=== PATIENT | male | born 1965 | race Caucasian/White ===

== ENCOUNTER 2021-05-29 12:01 | Emergency (ER) | payer BC ==
[~2021-05-29] VITALS: Ht 188 cm; Wt 142.8 kg
--- NOTE | 2021-05-29 12:37 | PHYS DOC ---
General Adult EDM: Chief Complaint: CHEST PAIN HPI: HPI: Patient is a 55-year-old male being seen in the ER for left-sided chest pain, nonproductive cough, and shortness of breath that started a couple of days ago. Patient rates pain 3 out of 10. It does not radiate. No treatment prior to arrival. Patient reports that his daughter is Covid positive is in the hospital. Patient denies nausea, vomiting, abdominal pain, loss of taste or smell, swelling in his lower extremities, fevers. (NANDINI REYES APRN) Review of Systems: Review of Systems: 14 body systems of the review of systems have been reviewed. See HPI for pertinent positive and negative responses, otherwise all other systems are negative, nonpertinent or noncontributory (NANDINI REYES APRN) Allergies: Allergies: Allergies Coded Allergies Type Severity Reaction Last Updated Verified No Known Drug Allergies 05/29/21 No (NANDINI REYES APRN) Physical Exam: PE: Constitutional: Well developed, well nourished, no acute distress, non-toxic appearance. [] HENT: Normocephalic, atraumatic Eyes: PERRL, conjunctiva normal, no discharge. [] Neck: Normal range of motion, no tenderness, supple, no stridor. [] Cardiovascular:Heart rate regular rhythm, no murmur [] Lungs & Thorax: Bilateral breath sounds clear to auscultation [] Abdomen: Bowel sounds normal, soft, obese, no tenderness, no masses, no pulsatile masses. [] Skin: Warm, dry, no erythema, no rash. [] Back: Normal range of motion Extremities: No tenderness, no cyanosis, no clubbing, ROM intact, no edema. [] Neurologic: Alert and oriented X 3, normal motor function, normal sensory function, no focal deficits noted. [] Psychologic: Affect normal, judgement normal, mood normal. [] (NANIDNI REYES APRN) Current Patient Data: Labs: Laboratory Tests Test 05/29/21 12:20 05/29/21 15:20 White Blood Count 7.2 x10^3/uL Red Blood Count 5.34 x10^6/uL Hemoglobin 16.7 g/dL Hematocrit 47.9 % Mean Corpuscular Volume 90 fL Mean Corpuscular Hemoglobin 31 pg Mean Corpuscular Hemoglobin Concent 35 g/dL Red Cell Distribution Width 13.2 % Platelet Count 115 x10^3/uL Neutrophils (%) (Auto) 67 % Lymphocytes (%) (Auto) 23 % Monocytes (%) (Auto) 8 % Eosinophils (%) (Auto) 1 % Basophils (%) (Auto) 1 % Neutrophils # (Auto) 4.8 x10^3uL Lymphocytes # (Auto) 1.6 x10^3/uL Monocytes # (Auto) 0.6 x10^3/uL Eosinophils # (Auto) 0.1 x10^3/uL Basophils # (Auto) 0.0 x10^3/uL Sodium Level 140 mmol/L Potassium Level 3.9 mmol/L Chloride Level 105 mmol/L Carbon Dioxide Level 26 mmol/L Anion Gap 9 Blood Urea Nitrogen 9 mg/dL Creatinine 1.0 mg/dL Estimated GFR (Cockcroft-Gault) 77.9 BUN/Creatinine Ratio 9 Glucose Level 233 mg/dL Calcium Level 8.8 mg/dL Total Bilirubin 1.1 mg/dL Aspartate Amino Transf (AST/SGOT) 38 U/L Alanine Aminotransferase (ALT/SGPT) 53 U/L Alkaline Phosphatase 73 U/L Troponin I Quantitative < 0.017 ng/mL < 0.017 ng/mL Total Protein 6.8 g/dL Albumin 3.7 g/dL Albumin/Globulin Ratio 1.2 Current Medications Medications (Trade) Dose Ordered Sig/Santosh Route PRN Reason Start Time Stop Time Status Last Admin Dose Admin Aspirin (Aspirin Chewable) 324 mg 1X ONCE PO 05/29/21 12:45 05/29/21 12:46 DC 05/29/21 13:22 Ceftriaxone Sodium 1 gm/ Sodium Chloride 50 ml @ 100 mls/hr 1X ONCE IV 05/29/21 13:30 05/29/21 13:59 DC 05/29/21 13:50 Azithromycin (Zithromax) 500 mg 1X ONCE PO 05/29/21 13:30 05/29/21 13:31 DC 05/29/21 13:49 Iohexol (Omnipaque 350 Mg/ml) 100 ml 1X ONCE IV 05/29/21 13:45 05/29/21 13:46 DC 05/29/21 13:44 Sodium Chloride 50 ml @ As Directed STK-MED ONCE .ROUTE 05/29/21 13:44 05/29/21 13:44 DC Ceftriaxone Sodium (Rocephin) 1 gm STK-MED ONCE .ROUTE 05/29/21 13:44 05/29/21 13:44 DC (NANDINI REYES APRN) EKG: EKG: EKG performed by ER staff at 1212 showed sinus rhythm, no STEMI as read by Dr. Hart at 1219. [] (NANDINI REYES APRN) Radiology/Procedures: Radiology/Procedures: PROCEDURE: CHEST AP ONLY EXAM: CHEST ONE VIEW. HISTORY: Chest pain, cough. COMPARISON: None. FINDINGS: A frontal view of the chest is obtained. There are changes of coronary artery bypass grafting. There are airspace opacities laterally in the left hemithorax. A nodule in the mid lung measures 14 mm. There are interstitial opacities more diffusely in the bases. There is no pneumothorax or pleural effusion. The heart is not enlarged. IMPRESSION: 1. Left midlung and bibasilar opacities suggest multifocal pneumonia. 2. A 1.4 cm nodule in the right midlung is indeterminate. Follow-up or CT could exclude a parenchymal lesion. Electronically signed by: Alphonso Browning MD (05/29/2021 12:53 PM) [id number] DICTATED AND SIGNED BY: RAZIA BROWNING MD DATE: 05/29/21 1250 CC: EMERGENCY,DEPARTMENT; NANDINI REYES APRN; LAVERNE RICHARDSON MD ~MTH0 0[] PROCEDURE: CT ANGIOGRAPHY CHEST RS Compliance Statement: One or more of the following individualized dose reduction techniques were utilized for this examination: 1. Automated exposure control 2. Adjustment of the mA and/or kV according to patient size 3. Use of iterative reconstruction technique CT CHEST WITH CONTRAST, PULMONARY ANGIOGRAM History: Chest pain, cough. Comparison: AP chest, same day. Technique: Helical CT of the chest was performed after the administration of 99 cc of Isovue 370 intravenous contrast according to PE protocol. Axial and coronal reconstructions were obtained. 3-D MIP images were constructed to better evaluate the pulmonary arteries. Findings: Pulmonary arteries are adequately opacified. There is no evidence of pulmonary embolism. Coronary artery disease and CABG changes are noted. The median sternotomy is not fused, correlate to time since surgery. Severe calcific aortic valve stenosis. No thoracic aortic dissection. The thyroid is symmetric. There are several subcentimeter mediastinal lymph nodes. Bilateral hilar lymph nodes may be reactive. The cardiac size is normal, no pericardial effusion. There is no pleural effusion. The central airways are patent. There is a noncalcified, solid nodule in the posterior right upper lobe measuring 11 x 12 mm, image 59. There is an irregular consolidation in the peripheral left upper lobe measuring approximately a 5.1 cm AP by 2.8 cm transverse by 4 cm craniocaudal. There is a benign calcification in the consolidation. There is associated mild pleural thickening. There is cholelithiasis. There are postsurgical changes of gastric bypass. No acute bone abnormality. IMPRESSION: 1. There is no pulmonary embolus. 2. There is an irregular consolidation in the peripheral left upper lobe with associated mild pleural thickening. Considerations include bronchopneumonia, round atelectasis, or malignancy. Suggest CT chest follow-up in 3 months. Comparison to prior imaging would be useful. 3. There is a 12 mm noncalcified, solid nodule in the posterior right upper lobe. Suggest further evaluation with FDG PET/CT versus follow-up CT chest in 3 months. Electronically signed by: Zen Wilson MD (05/29/2021 2:12 PM) [facility] DICTATED AND SIGNED BY: ZEN WILSON MD DATE: 05/29/21 135 CC: NANDINI REYES APRN; LAVERNE RICHARDSON MD ~MTH0 0 (NANDINI REYES APRN) Heart Score: C/O Chest Pain: Yes HEART Score for Chest Pain: HEART Score for Chest Pain Response (Comments) Value History Moderately Suspicious 1 ECG Nonspecific Repolarizatio 1 Age >45 - < 65 1 Risk Factors >3 Risk Factors or Hx CAD 2 Troponin < Normal Limit 0 Total 5 Risk Factors: Risk Factors: DM, Current or recent (<one month) smoker, HTN, HLP, family history of CAD, obesity. Risk Scores: Score 0 - 3: 2.5% MACE over next 6 weeks - Discharge Home Score 4 - 6: 20.3% MACE over next 6 weeks - Admit for Clinical Observation Score 7 - 10: 72.7% MACE over next 6 weeks - Early Invasive Strategies (NANDINI REYES APRN) Course & Med Decision Making: Course & Med Decision Making Pertinent Labs and Imaging studies reviewed. (See chart for details) Patient is a 55-year-old male being seen in the ER for chest pain, shortness of breath. Work-up in the ER consisted of blood work, EKG, chest x-ray, and Covid testing. Patient's daughter is positive for COVID-19. He reports being vaccinated. Chest x-ray shows left midlung and bibasilar opacities. Patient t reated with antibiotics in the ER. Patient is not hypoxic at this time, no tachycardia. Blood work in the ER is unremarkable. Repeat troponin ordered. CT angio ordered to rule out PE. CT angio negative for PE. The radiologist did suggest a repeat CT in 3 months for patient due to some nodules found. Repeat troponin was unchanged and negative. Is likely that patient's chest pain is due to his pneumonia and his pleuritic chest pain. Patient to be discharged home with an antibiotic. I discussed with patient all findings and diagnostic testing as well as the need to follow-up with PCP for further evaluation and treatment or return to the ER if any new or worsening symptoms. Strict return precautions were also discussed at length. Patient voiced understanding and agreement with the plan. Patient is hemodynamically stable at the time of disposition. (NANDINI REYES APRN) Dragon Disclaimer: Dragon Disclaimer: This electronic medical record was generated, in whole or in part, using a voice recognition dictation system. (NANDINI REYES APRN) Departure Departure: Impression: Primary Impression: Pneumonia Qualified Codes: J18.9 - Pneumonia, unspecified organism Disposition: HOME / SELF CARE / HOMELESS Condition: GOOD Referrals: LAVERNE RICHARDSON MD (PCP) Patient Instructions: Pneumonia, Adult Additional Instructions: You were seen in the ER today for left-sided chest pain, cough, and shortness of breath. Your lab work is unremarkable. Your chest x-ray showed pneumonia. The CT scan of your chest was negative for any emergent acute findings but there were some nodules that require follow-up with your primary care provider. To treat your pneumonia you will be discharged home with an antibiotic. You were also given your first dose of antibiotic in the ER today. Please start your antibiotic tomorrow. You can take Tylenol/ibuprofen for pain or fevers. We tested you in the ER today for COVID-19. You will receive notification of results when they become available, most likely in 2 to 3 days. Please self isolate until you receive these results. Please follow-up with your primary care provider tomorrow regarding your ER visit. If you develop worsening of your chest pain, shortness of breath, fevers refractory to treatment, uncontrollable nausea or vomiting please return to the ER immediately. EMERGENCY DEPARTMENT GENERAL DISCHARGE INSTRUCTIONS Thank you for coming to [facility] (ED) today and trusting us with you care. We trust that you had a positivie experience in our Emergency Department. If you wish to speak to the department management, you may call the director at [phone]. YOUR FOLLOW UP INSTRUCTIONS ARE FOLLOWS: 1. Do you have a private Doctor? If you do not have a private doctor, please ask for a resource list of physicians or clinics that may be able to assist you with follow up care. 2. The Emergency Physician has interpreted your x-rays. The X-Ray specialist will also review them. If there is a change in the findings, you will be notified in 48 hours when at all possible. 3. A lab test or culture has been done, your results will be reviewed and you will be notified if you need a change in treatment. ADDITIONAL INSTRUCTIONS AND INFORMATION: 1. Your care today has been supervised by a physician who is specially trained in emergency care. Many problems require more than one evaluation for a complete diagnosis and treatment. We recommend that you schedule your follow up appointment as recommended to ensure complete treatment of you illness or injury. If you are unable to obtain follow up care and continue to have a problem, or if your condition worsens, we recommend that you return to the ED. 2. We are not able to safely determine your condition over the phone nor are we able to give sound medical advice over the phone. For these safety reasons, if you call for medical advice we will ask you to come to the ED for further evaluation. 3. If you have any questions regarding these discharge instructions please call the ED at [phone]. SAFETY INFORMATION: In the interest of safety, wellness, and injury prevention; we encourage you to wear your sealbelt, if you smoke; quite smoking, and we encourage family to use a protective helmet for bicycling and other sporting events that present an increased risk for head injury. IF YOUR SYMPTOMS WORSEN OR NEW SYMPTOMS DEVELOP, OR YOU HAVE CONCERNS ABOUT YOUR CONDITION; OR IF YOUR CONDITION WORSENS WHILE YOU ARE WAITING FOR YOUR FOLLOW UP APPOINTMENT; EITHER CONTACT YOUR PRIMARY CARE DOCTOR, THE PHYSICIAN WHOSE NAME AND NUMBER YOU WERE GIVEN, OR RETURN TO THE ED IMMEDIATELY. Scripts Azithromycin (AZITHROMYCIN TABLET) 250 Mg Tablet 250 MG PO DAILY for ANTI-BIOTIC for 4 Days, #4 TAB 0 Refills Prov: NANDINI REYES PUBLIC ADMINISTRATION PROFESSOR 05/29/21 Attending Signature Attending Signature I have reviewed the PA/MOTORS ASSEMBLER's note and plan of care. I was available for consultation as needed during the patient's visit in the emergency department. I agree with the clinical impression, plan, and disposition. (AMINA HART DO) NANDINI REYES APRN May 29, 2021 12:37 AMINA HART DO May 29, 2021 20:49
[2021-05-29 12:46] LABS: BASO % 1 % (0-3); EOS # 0.1 x10^3/uL (0.0-0.7); EOS % 1 % (0-3); HEMATOCRIT 47.9 % (39.0-53.0); HEMOGLOBIN 16.7 g/dL (13.0-17.5); LYMPH # 1.6 x10^3/uL (1.0-4.8); LYMPH % 23 % (24-48); MEAN CORPUSCULAR HEMOGLOBIN 31 pg (25-35); MEAN CORPUSCULAR HGB CONC 35 g/dL (31-37); MEAN CORPUSCULAR VOLUME 90 fL (79-100); MONO # 0.6 x10^3/uL (0.0-1.1); MONO % 8 % (0-9); NEUT # 4.8 x10^3uL (1.8-7.7); NEUT % 67 % (31-73); PLATELET COUNT 115 x10^3/uL (140-400); RED BLOOD COUNT 5.34 x10^6/uL (4.30-5.70); RED CELL DISTRIBUTION WIDTH 13.2 % (11.5-14.5); WHITE BLOOD COUNT 7.2 x10^3/uL (4.0-11.0)
--- NOTE | 2021-05-29 12:56 | RAD ---
EXAM: CHEST ONE VIEW. HISTORY: Chest pain, cough. COMPARISON: None. FINDINGS: A frontal view of the chest is obtained. There are changes of coronary artery bypass grafti ng. There are airspace opacities laterally in the left hemithorax. A nodule in the mid lung measures 14 m m. There are interstitial opacities more diffusely in the bases. There is no pneumothorax or pleural effusion. The heart is not enlarged. IMPRESSION: 1. Left midlung and bibasilar opacities suggest multifocal pneumonia. 2. A 1.4 cm nodule in the right midlung is indeterminate. Follow-up or CT could exclude a parenchymal lesion. Electronically signed by: Alphonso Browning MD (05/29/2021 12:53 PM) [id number]
[2021-05-29 13:08] LABS: CALCIUM 8.8 mg/dL (8.5-10.1); GFR 77.9; POTASSIUM 3.9 mmol/L (3.5-5.1)
[2021-05-29 13:19] LABS: ALBUMIN 3.7 g/dL (3.4-5.0); ALBUMIN/GLOBULIN RATIO 1.2 (1.0-1.7); TOTAL BILIRUBIN 1.1 mg/dL (0.2-1.0); TOTAL PROTEIN 6.8 g/dL (6.4-8.2)
--- NOTE | 2021-05-29 13:19 | EKG ---
[address] [address] Test Date: 2021-05-29 Test Time: 12:12:00 Pat Name: LAVERNE AHMADI Department: Room: Gender: M Center Punch Operator: NASREEN : 1965 Requested By: NANDINI REYES Order Number: [id number] Reading MD: Measurements Intervals [place] Rate: 92 P: 54 IA: 176 QRS: -8 QRSD: 114 T: 128 QT: 348 QTc: 435 Interpretive Statements SINUS RHYTHM LEFTWARD AXIS QRS(T) CONTOUR ABNORMALITY CONSISTENT WITH ANTEROSEPTAL INFARCT PROBABLY OLD ST & T ABNORMALITY, CONSIDER HIGH LATERAL ISCHEMIA OR LEFT VENTRICULAR STRAIN ABNORMAL ECG RI6.02 No previous ECG available for comparison
[2021-05-29] MEDS: ASPIRIN CHEWABLE 81 MG TABLET. PO ONE (13:22)
[2021-05-29] MEDS ORDERED: cefTRIAXone SODIUM 1 GM VIAL ONE (13:44)
[2021-05-29] MEDS: IOHEXOL 350 MG/ML 100 ML VIAL. IV ONE (13:44)
[2021-05-29] MEDS ORDERED: IV NORMAL SALINE 50ML 50 ML ONE (13:44)
[2021-05-29] MEDS: AZITHROMYCIN 250 MG TABLET. PO ONE (13:49)
--- NOTE | 2021-05-29 14:14 | RAD ---
PQRS Compliance Statement: One or more of the following individualized dose reduction techniques were utilized for this examinat ion: 1. Automated exposure control 2. Adjustment of the mA and/or kV according to patient size 3. Use of iterative reconstruction technique CT CHEST WITH CONTRAST, PULMONARY ANGIOGRAM History: Chest pain, cough. Comparison: AP chest, same day. Technique: Helical CT of the chest was performed after the administration of 99 cc of Isovue 370 int ravenous contrast according to PE protocol. Axial and coronal reconstructions were obtained. 3-D UT P images were constructed to better evaluate the pulmonary arteries. Findings: Pulmonary arteries are adequately opacified. There is no evidence of pulmonary embolism. Coronary artery disease and CABG changes are noted. The median sternotomy is not fused, correlate to time since surgery. Severe calcific aortic valve stenosis. No thoracic aortic dissection. The thyroid is symmetric. There are several subcentimeter mediastinal lymph nodes. Bilateral hilar lymph nodes m ay be reactive. The cardiac size is normal, no pericardial effusion. There is no pleural effusion. The central airways are patent. There is a noncalcified, solid nodule i n the posterior right upper lobe measuring 11 x 12 mm, image 59. There is an irregular consolidation in the peripheral left upper lobe measuring approximately a 5.1 cm AP by 2.8 cm transverse by 4 cm cr aniocaudal. There is a benign calcification in the consolidation. There is associated mild pleural th ickening. There is cholelithiasis. There are postsurgical changes of gastric bypass. No acute bone abnormality. IMPRESSION: 1. There is no pulmonary embolus. 2. There is an irregular consolidation in the peripheral left upper lobe with associated mild pleura l thickening. Considerations include bronchopneumonia, round atelectasis, or malignancy. Suggest CT c hest follow-up in 3 months. Comparison to prior imaging would be useful. 3. There is a 12 mm noncalcified, solid nodule in the posterior right upper lobe. Suggest further ev aluation with FDG PET/CT versus follow-up CT chest in 3 months. Electronically signed by: Zen Wilson MD (05/29/2021 2:12 PM) [facility]
[2021-05-29 15:52] VITALS: BP 152/97
[2021-05-29] MEDS ORDERED: AZIT250T6 PO (16:19)
== END 2021-05-29 16:27 | disposition home or self-care (01) ==
LOC: ER 12:01
DX: J18.9 Pneumonia, unspecified organism (principal); Z20.822 Contact with and (suspected) exposure to COVID-19
CPT/HCPCS: 36415; 71045; 71275; 80053; 84484; 85025; 93005; 96374; 99285; C9803; J0696; Q9967; U0003

== ENCOUNTER → 2021-07-19 | Outpatient (CLI) | payer BC ==
[~2021-07-19] MED LIST: AZIT250T6 PO
--- NOTE | 2021-07-19 09:38 | RAD ---
PQRS Compliance Statement: One or more of the following individualized dose reduction techniques were utilized for this examinat ion: 1. Automated exposure control 2. Adjustment of the mA and/or kV according to patient size 3. Use of iterative reconstruction technique CT THORAX WO 07/19/2021 7:50 AM Indication: Trouble catching breath. Abnormal findings on CT COMPARISON: CT chest 05/29/2021 TECHNIQUE: Multiple axial CT images of the chest were obtained without intravenous contrast. Coronal and sagittal reformats are provided. FINDINGS: Stable solid noncalcified pulmonary nodule in the posterior right upper lobe measuring 12 mm, abuttin g and retracting the right major fissure posterior laterally (series 5, image 141). There is persiste nt rounded consolidative change within the lingula measuring approximately 2.6 x 3.0 cm with associat ed pleural thickening. No new solid noncalcified pulmonary nodule. No pleural effusions, pulmonary va scular congestion or pneumothorax. Median sternotomy changes are present. Heart size within normal li mits. Aortic valvular prosthesis identified. Three-vessel coronary artery vascular calcifications are present. Thoracic aorta is normal in course and caliber. Within the limitations of a noncontrast exa mination, there are no pathologically enlarged thoracic lymph nodes. Right hilar lymph node measures 10 mm, stable. Thoracic esophagus is normal in appearance. Gastric bypass postsurgical changes are id entified. Splenic collateral vessels are visualized. Spleen appears enlarged, only partially profiled . Mild nodular contour of the hepatic parenchyma could reflect underlying cirrhosis. Cholelithiasis. IMPRESSION: 1. Stable rounded irregular consolidative change in the left upper lobe lingular segment measuring 2. 6 x 3.0 cm, not significantly changed when measured in similar dimensions. Further evaluation with PE T/CT is recommended versus tissue sampling. 2. Stable solid noncalcified pulmonary nodule in the right upper lobe laterally measuring 12 mm. Atte ntion on PET/CT imaging is recommended. 3. Cholelithiasis. Next on 4. Suspect underlying cirrhosis with minimal nodular contour of the hepatic parenchyma. Splenomegaly could reflect portal hypertension. Electronically signed by: Angela Davis MD (07/19/2021 9:36 AM) [id number]
== END ==
LOC: CT 07:48
PROVIDERS: ATTEND Internal Medicine
DX: J92.9 Pleural plaque without asbestos (principal); K80.20 Calculus of gallbladder without cholecystitis without obstruction; I25.10 Atherosclerotic heart disease of native coronary artery without angina pectoris; R93.89 Abnormal findings on diagnostic imaging of other specified body structures; R16.1 Splenomegaly, not elsewhere classified
CPT/HCPCS: 71250